=== PATIENT | female | born 1970 | race Hispanic/Latino ===

== ENCOUNTER → 2023-04-08 | Outpatient (CLI) | payer MEDICAID | END | disposition home or self-care (01) | LOC: RAH 09:21 | PROVIDERS: ATTEND Surgery | DX: E66.01 Morbid (severe) obesity due to excess calories (principal); K91.1 Postgastric surgery syndromes; E11.9 Type 2 diabetes mellitus without complications; E78.5 Hyperlipidemia, unspecified; I10 Essential (primary) hypertension; G47.00 Insomnia, unspecified; F34.1 Dysthymic disorder | CPT/HCPCS: 74240 ==

== ENCOUNTER → 2023-04-09 | Outpatient (CLI) | payer MEDICAID ==
[~2023-04-09] MED LIST: IOHEXOL 350 MG/ML 100ML INFUS..BTL IV ONE
== END | disposition home or self-care (01) ==
LOC: EDUNIT# 09:30 → RAH 10:00
PROVIDERS: ATTEND Surgery
DX: K91.1 Postgastric surgery syndromes (principal); E11.9 Type 2 diabetes mellitus without complications; E78.5 Hyperlipidemia, unspecified; I10 Essential (primary) hypertension; E66.01 Morbid (severe) obesity due to excess calories; F34.1 Dysthymic disorder; M47.815 Spondylosis without myelopathy or radiculopathy, thoracolumbar region; G47.00 Insomnia, unspecified; N32.89 Other specified disorders of bladder
CPT/HCPCS: 74177; Q9967

== ENCOUNTER → 2023-12-02 | Outpatient (CLI) | payer MEDICAID ==
[~2023-12-02] MED LIST changes: +DIATR MEGLU/DIATRIZOATE SODIUM 30 ML BOTTLE ONE; -IOHEXOL 350 MG/ML 100ML INFUS..BTL IV ONE
== END | disposition home or self-care (01) ==
LOC: RAH 08:56
PROVIDERS: ATTEND Surgery
DX: K21.9 Gastro-esophageal reflux disease without esophagitis (principal)
CPT/HCPCS: 74240; Q9963

== ENCOUNTER → 2024-02-25 | Outpatient (CLI) | payer MEDICAID ==
[~2024-02-25] MED LIST changes: -DIATR MEGLU/DIATRIZOATE SODIUM 30 ML BOTTLE ONE; +MACR100 PO; +MECL-302 PO
[2024-02-25 09:30] LABS: BASOPHILS # (AUTO) 0.08 K/uL (0.00-0.20); BASOPHILS % (AUTO) 1.1 % (0.0-5.0); EOSINOPHILS # (AUTO) 0.15 K/uL (0.00-0.70); HEMATOCRIT 38.7 % (36-48); IMMATURE GRANULOCYTE ABSOLUTE 0.02 K/uL (0-1); LYMPHOCYTES # (AUTO) 3.1 K/uL (1.0-4.8); MEAN CORPUSCULAR HEMOGLOBIN 29.4 pg (27.0-33.0); MEAN CORPUSCULAR HGB CONC 32.6 g/dL (32.0-36.0); MEAN CORPUSCULAR VOLUME 90.2 fL (79-99); MONOCYTES # (AUTO) 0.5 K/uL (0.1-1.0); MONOCYTES % (AUTO) 7.1 % (3.0-13.0); NEUTROPHILS # (AUTO) 3.7 K/uL (1.8-7.7); NEUTROPHILS % (AUTO) 48.5 % (40.0-77.0); PLATELET COUNT (AUTO) 392 K/uL (130-400); RED BLOOD CELL COUNT(AUTO) 4.29 MIL/uL (4.00-5.50); RED CELL DISTRIBUTION WIDTH 14.1 % (11.0-15.5); WHITE BLOOD COUNT (AUTO) 7.6 K/uL (4.8-10.8)
[2024-02-25 09:56] LABS: ALBUMIN 3.6 g/dL (3.5-5.0); BILIRUBIN,TOTAL 0.5 mg/dL (0.2-1.0); POTASSIUM 4.2 mmol/L (3.5-5.1); TOTAL PROTEIN, SERUM 7.6 g/dL (6.0-8.3)
== END | disposition home or self-care (01) ==
LOC: DAH 10:00 → EDSTATUS 15:00
PROVIDERS: ATTEND Surgery
DX: I44.0 Atrioventricular block, first degree (principal); I45.2 Bifascicular block; K91.1 Postgastric surgery syndromes; K21.9 Gastro-esophageal reflux disease without esophagitis
CPT/HCPCS: 86900; 80053; 84703; 85025; 86850; 86901; 36415; 93005; A6260

== ENCOUNTER 2024-02-27 14:33 | Emergency (ER) | payer MEDICAID ==
[~2024-02-27] VITALS: Ht 154.9 cm; Wt 103.4 kg
[2024-02-27 15:40] LABS: ADD UA MICROSCOPIC YES; APPEARANCE,URINE CLEAR (CLEAR); BILIRUBIN,URINE NEGATIVE (NEGATIVE); COLOR,URINE YELLOW (YELLOW); GLUCOSE, URINE (UA) NEGATIVE (NEGATIVE); KETONES,URINE 100 mg/dL (NEGATIVE); LEUKOCYTE ESTERASE ,URINE 75 Leu/uL (NEGATIVE); NITRATE,URINE NEGATIVE (NEGATIVE); OCCULT BLOOD,URINE NEGATIVE (NEGATIVE); PROTEIN,URINE 20 mg/dL (NEGATIVE)
[2024-02-27 15:42] LABS: BACTERIA,URINE FEW /HPF (None Seen); MUCUS,URINE RARE LPF (None Seen); RBC,URINE 0-1 /HPF (0-1); SQUAMOUS EPITHELIAL CELL,UR RARE /HPF (0-2); WBC,URINE 26-50 /HPF (0-1)
[2024-02-27 15:53] LABS: BASOPHILS # (AUTO) 0.07 K/uL (0.00-0.20); BASOPHILS % (AUTO) 0.7 % (0.0-5.0); EOSINOPHILS # (AUTO) 0.07 K/uL (0.00-0.70); EOSINOPHILS % (AUTO) 0.7 % (0.0-8.0); HEMATOCRIT 37.9 % (36-48); IMMATURE GRANULOCYTE ABSOLUTE 0.05 K/uL (0-1); LYMPHOCYTES # (AUTO) 2.1 K/uL (1.0-4.8); LYMPHOCYTES % (AUTO) 22.2 % (21.0-51.0); MEAN CORPUSCULAR HEMOGLOBIN 29.5 pg (27.0-33.0); MEAN CORPUSCULAR HGB CONC 33.5 g/dL (32.0-36.0); MEAN CORPUSCULAR VOLUME 87.9 fL (79-99); MONOCYTES # (AUTO) 0.6 K/uL (0.1-1.0); MONOCYTES % (AUTO) 6.6 % (3.0-13.0); NEUTROPHILS # (AUTO) 6.5 K/uL (1.8-7.7); NEUTROPHILS % (AUTO) 69.3 % (40.0-77.0); PLATELET COUNT (AUTO) 358 K/uL (130-400); RED BLOOD CELL COUNT(AUTO) 4.31 MIL/uL (4.00-5.50); RED CELL DISTRIBUTION WIDTH 13.6 % (11.0-15.5); WHITE BLOOD COUNT (AUTO) 9.4 K/uL (4.8-10.8)
[2024-02-27] MEDS: FAMOTIDINE 20MG VIAL IV ONE (15:58)
[2024-02-27] MEDS: MECLIZINE HCL 25 MG TABLET PO ONE (15:58)
[2024-02-27] MEDS: KETOROLAC 30MG VIAL (30MG/ML) IVP ONE (15:58)
[2024-02-27] MEDS: METOCLOPRAMIDE 10 MG/2 ML VIAL IVP ONE (15:58)
[2024-02-27 16:02] LABS: CREATININE 0.9 mg/dL (0.5-1.0); POTASSIUM 4.3 mmol/L (3.5-5.1)
[2024-02-27 16:14] LABS: ALBUMIN 3.6 g/dL (3.5-5.0); BILIRUBIN,DIRECT 0.1 mg/dL (0.0-0.3); BILIRUBIN,TOTAL 0.5 mg/dL (0.2-1.0); MAGNESIUM 1.6 mg/dL (1.80-2.40); THYROID STIMULATING HORMONE 2.37 uIU/mL (0.36-3.74); TOTAL PROTEIN, SERUM 7.7 g/dL (6.0-8.3)
[2024-02-27 16:59] VITALS: BP 109/64; PULSE 93; RESP 12; O2SAT 98
[2024-02-27] MEDS ORDERED: MACR100 PO (17:05)
[2024-02-27] MEDS ORDERED: MECL-302 PO (17:05)
[2024-02-27] MEDS: NITROFURANTOIN MONOHYD/M-CRYST 100 MG CAPSULE PO ONE (17:53)
[2024-02-27] MEDS: 0.9%NACL 1000ML 1,000 ML IV ONE (17:54)
== END 2024-02-27 18:55 | disposition home or self-care (01) ==
LOC: EDH 14:33
DX: N39.0 Urinary tract infection, site not specified (principal); E86.0 Dehydration; R42 Dizziness and giddiness; E11.9 Type 2 diabetes mellitus without complications; I10 Essential (primary) hypertension; Z88.0 Allergy status to penicillin
CPT/HCPCS: 99284; 96374; 96375; 96361; 84443; 80076; 83735; 84484; 80048; 85025; 87088; 81001; 36415; 93005; J1885; J2765; S0028; J3490

== ENCOUNTER 2024-06-30 17:48 | Inpatient (IN) | payer OTHER, MEDICAID ==
[~2024-06-30] VITALS: Ht 165.1 cm; Wt 95.6 kg
[~2024-06-30 17:48] MED LIST changes: +ALBUTEROL IH; +ATOR20TA65 PO; +BENZ200C53 PO; +BIOT10005 PO; +CALCIUM MG ZINC PO; +CETI10TA57 PO; +CHOL100020 PO; +CINNAMON PO; +DULO20CA18 PO; +FIBER PILL PO; +GABA300C PO; +INSU100V3 SQ; -MACR100 PO; -MECL-302 PO; +MVI PO; +OMEP40CA21 PO; +PEPCID PO; +SEMA2PEN SQ; +VITAMIN B12 PO
[2024-06-30 18:28] LABS: BASOPHILS # (AUTO) 0.05 K/uL (0.00-0.20); BASOPHILS % (AUTO) 0.7 % (0.0-5.0); EOSINOPHILS # (AUTO) 0.21 K/uL (0.00-0.70); EOSINOPHILS % (AUTO) 3.1 % (0.0-8.0); HEMATOCRIT 34.1 % (36-48); IMMATURE GRANULOCYTE ABSOLUTE 0.01 K/uL (0-1); LYMPHOCYTES # (AUTO) 2.1 K/uL (1.0-4.8); LYMPHOCYTES % (AUTO) 31.3 % (21.0-51.0); MEAN CORPUSCULAR HEMOGLOBIN 29.6 pg (27.0-33.0); MEAN CORPUSCULAR HGB CONC 33.4 g/dL (32.0-36.0); MEAN CORPUSCULAR VOLUME 88.6 fL (79-99); MONOCYTES # (AUTO) 0.7 K/uL (0.1-1.0); MONOCYTES % (AUTO) 9.6 % (3.0-13.0); NEUTROPHILS # (AUTO) 3.7 K/uL (1.8-7.7); NEUTROPHILS % (AUTO) 55.2 % (40.0-77.0); PLATELET COUNT (AUTO) 349 K/uL (130-400); RED BLOOD CELL COUNT(AUTO) 3.85 MIL/uL (4.00-5.50); RED CELL DISTRIBUTION WIDTH 14.6 % (11.0-15.5); WHITE BLOOD COUNT (AUTO) 6.8 K/uL (4.8-10.8)
[2024-06-30 18:43] LABS: POTASSIUM 3.3 mmol/L (3.5-5.1)
[2024-06-30 18:47] LABS: ALBUMIN 2.9 g/dL (3.5-5.0); BILIRUBIN,TOTAL 0.4 mg/dL (0.2-1.0); TOTAL PROTEIN, SERUM 6.7 g/dL (6.0-8.3)
[2024-06-30] MEDS: ONDANSETRON 4MG INJ IVP STA (18:55)
[2024-06-30] MEDS: morPHINE 2 MG SYG IVP STA (18:56)
[2024-06-30] MEDS ORDERED: IOHEXOL-350 75 ML VIAL IV ONE (19:55)
[2024-06-30] MEDS ORDERED: hydrALAZine 20MG/ML VIAL IV PRN (22:30)
[2024-06-30] MEDS ORDERED: doCUSate SODIUM 100 MG CAP PO PRN (22:30)
[2024-06-30] MEDS ORDERED: TEMAZEPAM 15 MG CAPSULE PO PRN (22:30)
[2024-06-30] MEDS ORDERED: acetaMINOPHEN 650 MG SUPPOSITORY RC PRN (22:30)
[2024-06-30] MEDS ORDERED: ONDANSETRON 4MG INJ IVP PRN (22:30)
[2024-06-30] MEDS: LACTATED RINGERS 1000ML 1,000 ML IV SCH (23:10)
[2024-06-30 23:18] VITALS: O2SAT 99
[2024-06-30 23:30] VITALS: BP 127/53; PULSE 84; RESP 20; TEMP 97.8
[2024-06-30] MEDS ORDERED: POTASSIUM CHLORIDE 10% ELIXIR 20 MEQ/15 ML UDCUP PO PRN (23:30)
[2024-06-30] MEDS ORDERED: MAGNESIUM 2GM PREMIX 50ML 50 ML IV PRN (23:30)
[2024-06-30] MEDS ORDERED: GLUCAGON 1MG KIT 1 MG ML IM PRN (23:30)
[2024-06-30] MEDS ORDERED: KCL 20 MEQ ERTAB PO PRN (23:30)
[2024-06-30] MEDS ORDERED: DEXTROSE 50%-WATER 50 ML DISP.SYRIN IV PRN (23:30)
[2024-06-30] MEDS: levoFLOXacin 500 MG/D5W 100 ML 100 ML IV SCH (23:47)
[2024-07-01] MEDS: POTASSIUM CHLORIDE 20MEQ/100ML 100 ML IV PRN (01:30)
[2024-07-01] MEDS: morPHINE 2 MG SYG IVP PRN (03:19)
[2024-07-01 03:35] LABS: APPEARANCE,URINE CLEAR (CLEAR); BILIRUBIN,URINE NEGATIVE (NEGATIVE); COLOR,URINE LIGHT-YELLOW (YELLOW); GLUCOSE, URINE (UA) NEGATIVE (NEGATIVE); KETONES,URINE 20 mg/dL (NEGATIVE); LEUKOCYTE ESTERASE ,URINE NEGATIVE Leu/uL (NEGATIVE); NITRATE,URINE NEGATIVE (NEGATIVE); OCCULT BLOOD,URINE NEGATIVE (NEGATIVE); PH,URINE 5.5 (5.0-8.0); PROTEIN,URINE 10 mg/dL (NEGATIVE); UROBILINOGEN,URINE 0.2 mg/dL (0.2-1.0)
[2024-07-01 03:38] VITALS: BP 144/69; PULSE 83; RESP 22; TEMP 98.7
[2024-07-01 03:46] LABS: ADD UA MICROSCOPIC YES
[2024-07-01 03:51] LABS: BACTERIA,URINE None Seen /HPF (None Seen); RBC,URINE 0-1 /HPF (0-1)
[2024-07-01 03:52] LABS: SQUAMOUS EPITHELIAL CELL,UR Rare /HPF (0-2)
[2024-07-01 04:19] LABS: BASOPHILS # (AUTO) 0.05 K/uL (0.00-0.20); BASOPHILS % (AUTO) 0.7 % (0.0-5.0); EOSINOPHILS # (AUTO) 0.26 K/uL (0.00-0.70); EOSINOPHILS % (AUTO) 3.8 % (0.0-8.0); HEMATOCRIT 32.6 % (36-48); IMMATURE GRANULOCYTE ABSOLUTE 0.01 K/uL (0-1); LYMPHOCYTES # (AUTO) 3.3 K/uL (1.0-4.8); LYMPHOCYTES % (AUTO) 47.8 % (21.0-51.0); MEAN CORPUSCULAR HGB CONC 32.5 g/dL (32.0-36.0); MEAN CORPUSCULAR VOLUME 89.1 fL (79-99); MONOCYTES # (AUTO) 0.7 K/uL (0.1-1.0); MONOCYTES % (AUTO) 10.7 % (3.0-13.0); NEUTROPHILS # (AUTO) 2.6 K/uL (1.8-7.7); NEUTROPHILS % (AUTO) 36.9 % (40.0-77.0); PLATELET COUNT (AUTO) 358 K/uL (130-400); RED BLOOD CELL COUNT(AUTO) 3.66 MIL/uL (4.00-5.50); RED CELL DISTRIBUTION WIDTH 14.5 % (11.0-15.5); WHITE BLOOD COUNT (AUTO) 6.9 K/uL (4.8-10.8)
[2024-07-01 05:09] LABS: CREATININE 0.8 mg/dL (0.5-1.0); MAGNESIUM 1.3 mg/dL (1.80-2.40); PHOSPHORUS 3.7 mg/dL (2.5-4.9); THYROID STIMULATING HORMONE 5.32 uIU/mL (0.36-3.74)
[2024-07-01] MEDS: INSULIN humuLIN R 100 UNIT/ML 3ML SQ SCH (05:45)
[2024-07-01 08:00] VITALS: BP 144/61; PULSE 77; RESP 12; TEMP 97.4
[2024-07-01 12:00] VITALS: BP 118/58; PULSE 81; RESP 14; TEMP 97.6
[2024-07-01] MEDS ORDERED: MAGNESIUM 2GM PREMIX 50ML 50 ML IV SCH (13:00)
[2024-07-01 16:00] VITALS: BP 122/68; PULSE 81; RESP 14; TEMP 97.8
[2024-07-01 20:00] VITALS: BP 133/62; PULSE 86; RESP 18; TEMP 98.5
[2024-07-01] MEDS: NYSTatin 15 GM POWDER TP PRN (21:46)
[2024-07-02] VITALS: BP 123/60; PULSE 79; RESP 18; TEMP 98.2
[2024-07-02 04:00] VITALS: BP 127/62; PULSE 80; RESP 18; TEMP 98.1
[2024-07-02] MEDS: acetaMINOPHEN 325 MG TAB PO PRN (04:54)
[2024-07-02 05:02] LABS: HEMATOCRIT 32.9 % (36-48); MEAN CORPUSCULAR HEMOGLOBIN 29.4 pg (27.0-33.0); MEAN CORPUSCULAR HGB CONC 32.8 g/dL (32.0-36.0); MEAN CORPUSCULAR VOLUME 89.6 fL (79-99); RED BLOOD CELL COUNT(AUTO) 3.67 MIL/uL (4.00-5.50); RED CELL DISTRIBUTION WIDTH 14.4 % (11.0-15.5); WHITE BLOOD COUNT (AUTO) 6.6 K/uL (4.8-10.8)
[2024-07-02 05:18] LABS: ALBUMIN 2.5 g/dL (3.5-5.0); BILIRUBIN,TOTAL 0.3 mg/dL (0.2-1.0); CREATININE 0.7 mg/dL (0.5-1.0); MAGNESIUM 1.1 mg/dL (1.80-2.40); POTASSIUM 3.7 mmol/L (3.5-5.1); TOTAL PROTEIN, SERUM 6.1 g/dL (6.0-8.3)
[2024-07-02] MEDS: MAGNESIUM 2GM PREMIX 50ML 50 ML IV SCH (05:22)
[2024-07-02 08:00] VITALS: BP 116/60; PULSE 92; RESP 18; TEMP 98
[2024-07-02] MEDS ORDERED: MAGNESIUM 2GM PREMIX 50ML 50 ML IV SCH (09:30)
[2024-07-02 12:00] VITALS: BP 133/65; PULSE 78; RESP 18; TEMP 98.3
== END 2024-07-02 15:00 | disposition home or self-care (01) | DRG 914 ==
LOC: EDH 17:48 → EDHIP 21:47 → 4BH 23:20
PROVIDERS: ADMIT Internal Medicine; ATTEND Internal Medicine
DX: S39.81XA Other specified injuries of abdomen, initial encounter (principal); N17.9 Acute kidney failure, unspecified; V89.2XXA Person injured in unspecified motor-vehicle accident, traffic, initial encounter; I12.9 Hypertensive chronic kidney disease with stage 1 through stage 4 chronic kidney disease, or unspecified chronic kidney disease; E11.22 Type 2 diabetes mellitus with diabetic chronic kidney disease; N18.2 Chronic kidney disease, stage 2 (mild); E11.65 Type 2 diabetes mellitus with hyperglycemia; E66.01 Morbid (severe) obesity due to excess calories; E78.00 Pure hypercholesterolemia, unspecified; K59.00 Constipation, unspecified; K21.9 Gastro-esophageal reflux disease without esophagitis; G47.00 Insomnia, unspecified; F32.A Depression, unspecified; Z51.5 Encounter for palliative care; Z68.37 Body mass index [BMI] 37.0-37.9, adult; Z79.01 Long term (current) use of anticoagulants; Z90.721 Acquired absence of ovaries, unilateral; Z98.84 Bariatric surgery status
CPT/HCPCS: 36415; 70450; 74018; 74177; 80048; 80053; 81001; 82948; 83735; 84100; 84443; 85025; 85027; 87086; G0378; J1956; J2270; J2405; J3475; J3480; Q9967

== ENCOUNTER 2025-08-11 17:04 | Emergency (ER) | payer MEDICAID ==
[~2025-08-11] VITALS: Ht 154.9 cm; Wt 97.5 kg
[~2025-08-11 17:04] MED LIST changes: -ALBUTEROL IH; -BENZ200C53 PO; +BIOT10004 PO; -BIOT10005 PO; -CALCIUM MG ZINC PO; -CETI10TA57 PO; +CETI10TA87 PO; -CHOL100020 PO; +CHOL100034 PO; -CINNAMON PO; +FAMO20TA8 PO; -FIBER PILL PO; -INSU100V3 SQ; +MAGN400C PO; -MVI PO; -OMEP40CA21 PO; -PEPCID PO; -SEMA2PEN SQ; -VITAMIN B12 PO
--- NOTE | 2025-08-11 17:17 | ERN ---
General Chief Complaint: Knee Injury/Swelling Stated Complaint: LT KNEE INJURY,PAIN,AND SWELLING POST FALL Time Seen by MD: 17:06 Time Seen by Midlevel: 17:06 Source: patient, EMS History of Present Illness Initial Comments 54-year-old female with a past medical history of type 2 diabetes presenting to the ER via EMS for left knee pain after she sustained a mechanical ground level fall after getting out of a pool. Patient has the majority of her pain to her left knee. Patient unable to ambulate on her own. Patient was administered 100 mcg of fentanyl and 4 mg of Zofran EN route by EMS. Denies any head injury or loss of consciousness. Denies being on any blood thinners. Allergies: Coded Allergies: Penicillins (Unverified Allergy, Unknown, 02/27/24) empagliflozin (Unverified Allergy, Unknown, 06/19/24) meloxicam (Unverified Allergy, Unknown, 06/19/24) pioglitazone (Unverified Allergy, Unknown, 06/22/24) EDEMA ALL OVER GAIN WEIGHT Home Meds Reported Medications Biotin (Biotin) 1,000 Mcg Tab.chew, 1 TAB PO DAILY for 30 Days, #30 TAB 0 Refills 02/10/25 Cholecalciferol (Vitamin D3) (Vitamin D3) 25 Mcg (1000 Unit) Tab.chew, 1 TAB PO DAILY for 30 Days, #30 TAB 0 Refills 02/10/25 Magnesium Oxide (Magnesium) 400 Mg Magnesium Capsule, 1 CAP PO DAILY for 30 Da ys, #30 CAP 0 Refills 02/10/25 Famotidine (Famotidine) 20 Mg Tablet, 1 TAB PO BID for 30 Days, #60 TAB 0 Re fills 02/10/25 Atorvastatin Calcium (Atorvastatin Calcium) 20 Mg Tablet, 1 TAB PO DAILY for 30 Days, #30 TAB 0 Refills 02/10/25 Duloxetine HCl (Duloxetine HCl) 20 Mg Capsule.dr, 1 CAP PO DAILY for 30 Days, #30 CAP 0 Refills 02/10/25 Cetirizine HCl (Cetirizine HCl) 10 Mg Tab.chew, 1 TAB PO DAILY PRN for OTHER [SEE ORDER COMMENTS] for 30 Days, #30 TAB 0 Refills 02/10/25 Gabapentin (Neurontin) 300 Mg Capsule, 1 CAP PO BID for 30 Days, #90 CAP 0 Refills 02/10/25 Past Medical History Past Medical History: Asthma, Bipolar, Depression, Diabetes-Type II, Heart Disease Medical History Other: INSOMNIA Past Surgical History: Unknown Surgical History Other: HERNIA REPAIR ROS Dictation CONSTITUTIONAL: Negative except for HPI HEAD/FACE: Negative except for HPI EENT: Negative except for HPI RESPIRATORY: Negative except for HPI GASTROINTESTINAL/ABDOMINAL: Negative except for HPI GENITOURINARY: Negative except for HPI MUSCULOSKELETAL: Negative except for HPI INTEGUMENTARY: Negative except for HPI NEUROLOGICAL/PSYCH: Negative except for HPI HEMATOLOGIC/LYMPHATIC: Negative except for HPI All Systems Negative, Except as noted above. 13 point review of systems assessed and all negative except for above. Physical Exam Physical Exam Dictation Vital Signs reviewed General Appearance: Alert, oriented x 3, no acute distress, well developed, nourished. Head and Face: non-traumatic. Eyes: PERRL, pink conjunctivas, eyelid no trauma, anterior chamber with arcus senilis. Ears: Pinnas intact and no signs of trauma or erythema ear canals clear and no discharge TM no erythema Nose: No discharge, no bleeding. Oropharynx: Mouth normal, tongue pink, pharynx clear,no erythema, tonsils no exudates, no abscesses noted, mucous membrane moist Neck: Supple, non-tender, no thyromegaly, no masses, no JVD, no bruits Breast:Deferred Chest:No tenderness, no crepitus, no paradoxical movement, no retractions Lungs:Clear, well-ventilated, symmetric, no rales, no wheezing, no rhonchi, no stridor, good breath sounds bilaterally Heart: Regular rate, regular rhythm, no murmur, no gallops Vascular: no peripheral edema, Abdomen: Soft, positive bowel sounds, nondistended, no guarding, nontender, no rebound, no masses no hepatomegaly, no splenomegaly, no Lopez's sign, no hernias. Rectal: Deferred Genital: Deferred Neurological: Normal speech, motor function intact, sensory function intact Musculoskeletal: Neck nontender, full range of motion, back nontender, full range of motion, Extremities: There was an obvious deformity to the left knee who restricted range of motion secondary to pain, she has good distal pulses to the dorsalis pedis and posterior tibialis with normal capillary refill of less than 2 seconds to her left foot, she is neurovascularly intact Skin: Color pink, dry, no turgor, no rash, no lacerations, no abrasions, no contusions. Lymphatic: Deferred Results Laboratory and Microbiology Lab and Micro Result Laboratory Tests Test 08/11/25 18:57 White Blood Count 8.2 K/uL (4.8-10.8) Red Blood Count 4.23 MIL/uL (4.00-5.50) Hemoglobin 12.2 g/dL (12.0-16.0) Hematocrit 37.6 % (36-48) Mean Corpuscular Volume 88.9 fL (79-99) Mean Corpuscular Hemoglobin 28.8 pg (27.0-33.0) Mean Corpuscular Hemoglobin Concent 32.4 g/dL (32.0-36.0) Red Cell Distribution Width 13.8 % (11.0-15.5) Platelet Count 341 K/uL (130-400) Mean Platelet Volume 10.9 fL (7.5-10.5) H Immature Granulocyte % (Auto) 0.4 % (0-1) Neutrophils (%) (Auto) 65.5 % (40.0-77.0) Lymphocytes (%) (Auto) 27.5 % (21.0-51.0) Monocytes (%) (Auto) 5.1 % (3.0-13.0) Eosinophils (%) (Auto) 0.6 % (0.0-8.0) Basophils (%) (Auto) 0.9 % (0.0-5.0) Neutrophils # (Auto) 5.4 K/uL (1.8-7.7) Lymphocytes # (Auto) 2.3 K/uL (1.0-4.8) Monocytes # (Auto) 0.4 K/uL (0.1-1.0) Eosinophils # (Auto) 0.05 K/uL (0.00-0.70) Basophils # (Auto) 0.07 K/uL (0.00-0.20) Absolute Immature Granulocyte (auto 0.03 K/uL (0-1) Nucleated Red Blood Cells 0.0 % (0.0-0.19) Sodium Level 142 mmol/L (136-145) Potassium Level 4.1 mmol/L (3.5-5.1) Chloride Level 106 mmol/L (101-111) Carbon Dioxide Level 25 mmol/L (21-32) Blood Urea Nitrogen 12 mg/dL (7-18) Creatinine 0.7 mg/dL (0.5-1.0) Glomerular Filtration Rate Calc 102 mL/min (>90) Random Glucose 177 mg/dL (70-105) H Total Calcium 8.7 mg/dL (8.5-10.1) Labs Reviewed?: Yes MDM MDM: 54-year-old female presented via EMS after a mechanical fall while exiting a pool, striking her left knee. On arrival, the knee was fixed an a proximally 90 degree flexion with no active range of motion. He had received 100 mcg fentanyl and4 mg of Zofran prior to arrival for pain control. Initial x-ray demonstrated an intra-articular fracture of the inferior pole of the patella with a proximally4 cm of fragment distraction, associated knee joint effusion and prepatellar soft tissue swelling consistent bursitis. Given the m echanism, deformity, and restricted range of motion and knee dislocation was considered. Patient underwent conscious sedation ketamine 100 mg then midazolam2 mg per attempted reduction. Sedation was well tolerated without complications. Postreduction x-rays demonstrated improved alignment of the patellar fragments with partial reduction of the distraction. Due to concern for possible vascular compromise, a CT angiogram of the left lower extremity was obtained, which showed no evidence of vascular injury, occlusion, or thrombosis. Distal pulses remained palpable and symmetric postprocedure. Neurological function of the limb was intact Given stable hemodynamics, normal vascular imaging, improved alignment, and intact neurovascular exam, patient was deemed appropriate for outpatient orthopedic follow up. The leg was immobilized in full extension using a knee immobilizer, and she was provided crutches for nonweightbearing ambulation. Pain control and return precautions were discussed, including signs of vascular compromise, increasing pain, swelling, or numbness. Patient will follow up with orthopedic surgery within 2-3 days for operative evaluation if needed. Differential diagnosis: Fracture, contusion, dislocation There are no social concerns with this patient. Prescription drug management Prescriptions will include: Medical management and examination interpretation discussions were had by me with other qualified healthcare professionals as indicated for the patient's care. ED Course Orders Procedure Category Date Status Time Knee 3vws Lt RAD 08/11/25 Resulted 17:14 Femur 2 Vw Left RAD 08/11/25 Resulted 17:14 Pelvis 1-2vws RAD 08/11/25 Resulted 17:14 Morphine 4mg Syg PHA 08/11/25 Complete (Morphine 4mg Syg) 17:30 Ketamine 50mg/Ml PHA 08/11/25 Complete Syringe (Ketamine 18:30 Knee Immobilizer LAKHWINDER 08/11/25 In Process 18:13 Midazolam Hcl (Versed) PHA 08/11/25 Complete 18:30 Knee 3vws Lt RAD 08/11/25 Resulted 18:16 Cbc With Differential LAB 08/11/25 Complete 18:22 Basic Metabolic Panel LAB 08/11/25 Complete 18:[address] Ct Angio Low Ext CT 08/11/25 Resulted 19:27 Iohexol (Omnipaque) PHA 08/11/25 Complete 20:23 Morphine 2mg Syg PHA 08/12/25 Logged (Morphine 2mg Syg) 00:00 Ondansetron 4mg Inj PHA 08/12/25 Logged (Zofran 4mg Inj) 00:00 Current Medications Medications (Trade) Dose Ordered Sig/Lupillo Route PRN Reason Start Time Stop Time Status Last Admin Dose Admin Iohexol (Omnipaque) 75 ml STK-MED ONCE IV 08/11/25 20:23 08/11/25 20:23 DC Ketamine HCl (ketaMINE 50MG/ ML SYRINGE) 100 mg ONCE ONCE IV 08/11/25 18:30 08/11/25 18:31 DC 08/11/25 18:38 Midazolam HCl (Versed) 5 mg ONCE ONCE IVP 08/11/25 18:30 08/11/25 18:31 DC 08/11/25 18:38 Morphine Sulfate (morPHINE 2MG SYG) 2 mg ONCE ONCE IVP 08/12/25 00:00 08/12/25 00:01 UNV Morphine Sulfate (morPHINE 4MG SYG) 2 mg ONCE ONCE IVP 08/11/25 17:30 08/11/25 17:31 DC 08/11/25 17:38 Ondansetron HCl (zoFRAN 4MG INJ) 4 mg ONCE ONCE IVP 08/12/25 00:00 08/12/25 00:01 UNV Vital Signs Date Time Temp Pulse Resp B/P (MAP) Pulse Ox O2 Delivery O2 Flow Rate FiO2 08/11/25 22:36 98.2 90 18 151/79 98 Room Air* 0 21 08/11/25 20:55 98.2 92 18 164/71 98 Room Air* 0 21 08/11/25 18:21 93 18 N/Cannula Low lpm 3.0 32 08/11/25 17:32 98.2 88 18 186/63 98 Room Air* 0 21 08/11/25 17:06 98.6 95 20 167/79 97 Room Air DX & DISP Disposition: Discharge Departure Impression: Primary Impression: Fracture of left patella Condition: Stable Referrals: MADISON BISHOP MD (PCP) AURELIANO FIGUEREDO MD Time of Disposition: 23:33 I have reviewed the case, and I agree with, Diagnosis and Plan I performed the substantive portion of the visit. I have reviewed and personally made and approve the management plan that is documented in the note by myself or the FREDDY. I acknowledge for responsibility for the patient's management plan. LUCERO MOROCHO PAC Aug 11, 2025 17:17
--- NOTE | 2025-08-11 18:17 | HMCIMG ---
EXAM: CR Pelvis, 1 View. CLINICAL HISTORY: r/o fx COMPARISON: None provided. FINDINGS: BONES: No acute fracture or aggressive appearing osseous lesion. JOINTS: No dislocation. Spondylosis of the visualized lower lumbar spine. Mild bilateral sacroiliac joint osteoarthritis. SOFT TISSUES: The soft tissues are unremarkable. IMPRESSION: No acute osseous abnormality. /[place]
--- NOTE | 2025-08-11 18:19 | HMCIMG ---
EXAM: CR left femur, 4 View. CLINICAL HISTORY: r/o fx COMPARISON: None provided. FINDINGS: Distracted patellar fracture. No displaced femoral fracture appreciated. IMPRESSION: 1. Distracted patellar fracture. /[place]
--- NOTE | 2025-08-11 18:20 | HMCIMG ---
EXAM: CR left knee, 3 View. CLINICAL HISTORY: r/o fx COMPARISON: None provided. FINDINGS: There is an intra-articular fracture at the inferior pole of the patella with approximately 4.0 cm distraction (fracture). Medial and lateral compartments remain anatomically aligned on these projections. There is a knee joint effusion and prepatellar bursitis. IMPRESSION: 1. Intra-articular fracture at the inferior pole of the patella with approximately 4.0 cm distraction. 2. Knee joint effusion and prepatellar bursitis. /[place]
[2025-08-11 18:21] VITALS: PULSE 93; RESP 18; O2SAT 100
[2025-08-11] MEDS: MIDAZOLAM HCL 1 MG/ML 2ML VIAL IVP ONE (18:38)
--- NOTE | 2025-08-11 18:48 | HMCIMG ---
EXAM: Left knee radiograph 3 view HISTORY: Post reduction COMPARISON: 08/11/2025 TECHNIQUE: AP, lateral and oblique view of the knee FINDINGS: Knee joint is intact with no evidence of dislocation. Patella fracture is slightly closer together however continued large separation. Soft tissue swelling. Effusion. Vascular calcifications. IMPRESSION: Slight reduction in patella fracture /[place]
[2025-08-11 19:03] LABS: IMMATURE GRANULOCYTE ABSOLUTE 0.03 K/uL (0-1); NUCLEATED RED BLOOD CELLS 0.0 % (0.0-0.19); PLATELET COUNT (AUTO) 341 K/uL (130-400); RED BLOOD CELL COUNT(AUTO) 4.23 MIL/uL (4.00-5.50); RED CELL DISTRIBUTION WIDTH 13.8 % (11.0-15.5); WHITE BLOOD COUNT (AUTO) 8.2 K/uL (4.8-10.8)
[2025-08-11 19:12] LABS: CREATININE 0.7 mg/dL (0.5-1.0); GLOMERULAR FILTR. RATE CALC 102.0 mL/min (>90); GLUCOSE,RANDOM 177.0 mg/dL (70-105); SODIUM SERUM 142.0 mmol/L (136-145); UREA NITROGEN, BLOOD 12.0 mg/dL (7-18)
--- NOTE | 2025-08-11 19:35 | NUR ---
CT EXAM ON HOLD: PER [facility] APPRAISER AYDEN, PATIENT IS SEDATED & UNABLE TO SIGN CONSENT FOR CTA EXAM.
[2025-08-11] MEDS ORDERED: IOHEXOL-350 75 ML VIAL IV ONE (20:23)
--- NOTE | 2025-08-11 23:02 | HMCIMG ---
EXAM: CTA left Lower Extremity with and without Intravenous Contrast. CLINICAL HISTORY: Rule out vascular injury, status post knee fracture. TECHNIQUE: Axial CTA images of the left Lower Extremity were performed with and without intravenous contrast in the arterial phase, with coronal and sagittal reformatted images generated and reviewed. 3-D reformatted images were generated on an independent workstation and also reviewed. COMPARISON: None provided. FINDINGS: VASCULATURE: Common Femoral Artery: No acute finding. No occlusion, rupture, aneurysm, or dissection. Superficial Femoral Artery: The superficial femoral artery demonstrates atherosclerotic wall calcifications without significant stenosis. No occlusion, rupture, aneurysm, or dissection. Deep Femoral Artery: No acute finding. No occlusion, rupture, aneurysm, or dissection. Popliteal Artery: The popliteal artery demonstrates atherosclerotic wall calcifications with intimal thickening resulting in 20%-30% stenosis. No occlusion, rupture, aneurysm, or dissection. Calf Arteries: The posterior tibial artery demonstrates dense atherosclerotic wall calcifications in the distal segment, limiting contrast assessment. The proximal and mid posterior tibial artery shows normal contrast opacification; Doppler correlation is recommended. Anterior tibial and peroneal arteries reveal normal contrast opacification. No evidence of rupture, aneurysm, or dissection. Soft tissues: There is a soft tissue hematoma around the patella. Mild to moderate fatty atrophy of the thigh and leg muscles is present. No other soft tissue abnormality. Bones: The patella demonstrates a displaced transverse fracture. The fragments are displaced by approximately 2 cm. No other acute osseous abnormality. Mild knee joint hemarthrosis. IMPRESSION: Displaced transverse fracture of the patella with surrounding soft tissue hematoma. No acute vascular injury or acute thrombosis. Atherosclerotic calcifications in the distal posterior tibial artery limit contrast assessment; proximal and mid segments demonstrate normal opacification - recommend Doppler correlation. /[place]
--- NOTE | 2025-08-11 23:35 | NUR ---
PATIENT READY FOR DISCHARGE PER ER PROVIDER, PATIENT STILL EXPERIENCING PAIN, JUSTUS DIETRICH AWARE, WILL ORDER PAIN MEDICATIONS
--- NOTE | 2025-08-12 00:17 | NUR ---
PAIN MEDICATION ORDERED AT [id number], MEDICATION NOT PROFILED IN [facility]
[2025-08-12 01:22] VITALS: BP 137/65; PULSE 94; RESP 17; TEMP 98.2; O2SAT 98
== END 2025-08-12 01:25 | disposition home or self-care (01) ==
LOC: EDH 17:04
DX: S82.032A Displaced transverse fracture of left patella, initial encounter for closed fracture (principal); E11.51 Type 2 diabetes mellitus with diabetic peripheral angiopathy without gangrene; F31.9 Bipolar disorder, unspecified; I51.9 Heart disease, unspecified; J45.909 Unspecified asthma, uncomplicated; Z79.899 Other long term (current) drug therapy; Z88.0 Allergy status to penicillin; Z88.8 Allergy status to other drugs, medicaments and biological substances; Z98.890 Other specified postprocedural states; W18.39XA Other fall on same level, initial encounter; Y93.89 Activity, other specified; Y92.89 Other specified places as the place of occurrence of the external cause; Y99.8 Other external cause status
CPT/HCPCS: 99285; 27520; 96374; 73706; 99153; 80048; 85025; 36415; 73552; 73562 ×2; 72170; 99152; 96375; 96376; J2250 ×2; J2270 ×2; Q9967; J3490; J2405